=== PATIENT | male | born 1975 | race Hispanic/Latino ===

== ENCOUNTER 2023-08-25 17:30 | Emergency (ER) | payer SELFPAY ==
[2023-08-25 17:31] VITALS: BP 120/79
[2023-08-25 17:37] LABS: Glucose - Point of Care 528 mg/dl (70-99)
[2023-08-25 17:51] VITALS: BP 112/81
[2023-08-25 18:00] VITALS: BP 114/75
[2023-08-25 18:07] LABS: Venous Blood Gas B.E. 2.6 mmol/L (-4 to +4); Venous Blood Gas HCO3 27.2 mmol/L (22-27); Venous Blood Gas O2 Sat % 91.8 %; Venous Blood Gas pCO2 41 mmHg (35-48); Venous Blood Gas pH 7.43 (7.32-7.43); Venous Blood Gas pO2 60 mmHg (30-50)
[2023-08-25 18:10] LABS: % Basophils 0.2 % (0-2); % Eosinophils 6.3 % (0-6); % Immature Granulocytes 0.2 % (0-0.5); % Lymphocytes 42.9 % (20.5-51.1); % Monocytes 6.1 % (1.7-9.3); % Neutrophils 44.3 % (42.2-75.2); Absolute Eosinophils 0.6 10^3/uL (0-0.7); Absolute Lymphocytes 3.8 10^3/uL (1.2-3.4); Absolute Monocytes 0.5 10^3/uL (0.1-0.6); Absolute Neutrophils 3.9 10^3/uL (1.4-6.5); Hematocrit 44.3 % (39.0-52.0); Hemoglobin 15.9 g/dL (13.0-18.0); Mean Corp Hgb Conc. 35.9 g/dL (33.0-37.0); Mean Corpuscular Hgb 30.9 pg (27.0-31.0); Mean Platelet Volume 10.3 fL (7.4-10.4); Nucleated Red Blood Cells % 0 % (-); Platelet Count 223 10^3/uL (130-400); Red Blood Cell Count 5.15 10^6/uL (4.70-6.10); Red Cell Dist. Width 11.3 % (11.5-14.5); White Blood Cell Count 8.9 10^3/uL (4.8-10.8)
[2023-08-25 18:17] LABS: Lactic Acid 1.4 mmol/L (0.7-2.0)
[2023-08-25 18:24] LABS: ALT (SGPT) 26 U/L (0-50); AST (SGOT) 24 U/L (17-59); Albumin 3.9 g/dl (3.5-5.0); Alkaline Phosphatase 104 U/L (38-126); Blood Urea Nitrogen 13 mg/dl (9-20); Calcium 9.3 mg/dl (8.4-10.2); Carbon Dioxide 25 mmol/L (22-30); Chloride 98 mmol/L (98-107); Glucose 497 mg/dl (70-99); Magnesium 1.8 mg/dl (1.6-2.3); Potassium 4.2 mmol/L (3.5-5.1); Sodium 131 mmol/L (135-145); Total Bilirubin 0.4 mg/dl (0.2-1.3); Total Protein 7.5 g/dl (6.3-8.2); eGFR > 60.00
[2023-08-25 18:30] LABS: Troponin I < 0.012 ng/ml
[2023-08-25 18:32] LABS: B-Hydroxybutyrate 0.17 mmol/L (0.02-0.27)
[2023-08-25] MEDS: NOVOLIN R 10 UNITS IV (18:48)
[2023-08-25] MEDS: NSS 1000 IV (18:51)
--- NOTE | 2023-08-25 18:55 | ED.GENMED ---
History of Present Illness
General
Chief Complaint: Blood Sugar Problem
Source: patient
Exam Limitations: none
Time Seen by Provider: 08/25/23 17:50
Nursing documentation reviewed up to this point in time: agreed with
Travel History
Have you had any contact with someone who has COVID-19?: No
Do you have any symptoms of coronavirus? Fever > 100 degrees, chills, cough, shortness of breath, sore throat, loss of taste or smell, muscle aches, or headache?: No
History of Present Illness
History of Present Illness:
Patient presents to ED secondary to intermittent left-sided chest pain over the past 1 week, along with increased blood sugar when checked at home this morning. Patient who migrated from [facility] 2 years ago, states that he was told that he has
'diabetes' in [facility], but was not started on any medications. Patient does not check his blood sugar on a regular basis. There is family history of diabetes. Chest pain described as sharp, intermittent, lasting couple minutes, without any
radiation, without any alleviating or alleviating factors. In addition, patient states that he has had cough with fever for the past 10 days, which now is mostly resolved.
Review of Systems
Review of Systems
Allergies reviewed?: Yes
All Other Systems: ROS reviewed and negative except as documented in HPI and ROS
Constitutional: Reports no symptoms
EENT: Reports no symptoms
Respiratory: Reports no symptoms
Cardiac: Reports chest pain
ABD/GI: Reports no symptoms
: Reports no symptoms
Musculoskeletal: Reports no symptoms
Skin: Reports no symptoms
Neurological: Reports no symptoms
Phy Exam
Physical Exam
Physical Exam:
Physical Exam
General: no apparent distress, not acutely ill. afebrile.
Head: nc/at. eomi
Neck: supple. no meningeal signs.
Heart: s1/s2 regular rate and rhythm, no murmur. equal radial pulses.
Lungs: no acute respiratory distress. clear bilaterally. chest wall nontender to palpation.
Abdomen: normal bowel sounds. not tender.
Neuro: alert and oriented. no focal neurological deficits
Skin: no rash
Psychiatric: well kept. interactive and cooperative
Extremities: no edema. no calf tenderness.
Course
Orders/Labs/Results
Orders:
Orders
08/25/23 17:39
Electrocardiogram (*1) Urgent
Reason for Study: Chest Pain
EKG- Treatment ONCE
08/25/23 17:50
Electrocardiogram (*1) Urgent
Reason for Study: QTc Monitoring
08/25/23 18:00
Acetone [B-Hydroxybutyrate] Urgent
Complete Blood Count/With Diff Urgent
Comprehensive Metabolic Panel Urgent
Glycohemoglobin (HgbA1c) Urgent
Lactic Acid Q4H
Comment: CANCEL 2nd LACTIC ACID IF 1st LACTIC ACID IS LESS THAN 2
Magnesium Urgent
Troponin I Urgent
Venous Blood Gas Urgent
%Oxygen/Room Air: 95
08/25/23 18:42
0.9% Sodium Chloride 1000 ml [Nss] 1,000 ml IV BOLUS
Insulin Human Regular [Novolin R] 10 units IV NOW STA
08/25/23 19:17
Add On- LAB Urgent
Tests Added?: Hemoglobin A1c
08/25/23 20:25
METFORMIN HCl [Glucophage] 500 mg PO NOW STA
08/25/23 20:36
Urinalysis Reflex To Culture Urgent
Date Specimen was Collected: 08/25/23
Time Specimen was Collected: 20:34
Abnormal Lab Results
08/25/23 08/25/23 08/25/23
17:36 18:00 19:58
RDW 11.3 L %
(11.5-14.5)
Absolute Lymphs (auto) 3.8 H 10^3/uL
(1.2-3.4)
Eosinophils % 6.3 H %
(0-6)
VBG pO2 60 H mmHg
(30-50)
VBG HCO3 27.2 H mmol/L
(22-27)
Sodium 131 L mmol/L
(135-145)
Creatinine 0.5 L mg/dL
(0.7-1.3)
Glucose 497 H* mg/dl
(70-99)
Urine Glucose
POC Glucose 528 H* mg/dl 177 H mg/dl
(70-99) (70-99)
08/25/23
20:36
RDW
Absolute Lymphs (auto)
Eosinophils %
VBG pO2
VBG HCO3
Sodium
Creatinine
Glucose
Urine Glucose 3+ A
(Negative)
POC Glucose
08/25/23 18:00
08/25/23 18:00
Vital Signs
Initial and Last Documented VS:
Initial Vital Signs
Temp Pulse Resp BP Pulse Ox
97.9 F 70 20 120/79 96
08/25/23 17:31 08/25/23 17:31 08/25/23 17:31 08/25/23 17:31 08/25/23 17:31
Last Documented Vital Signs
Temp Pulse Resp BP Pulse Ox
97.9 F 67 15 111/74 97
08/25/23 17:31 08/25/23 20:30 08/25/23 20:30 08/25/23 20:00 08/25/23 20:30
MDM/Problems Addressed
MDM/Problems Addressed:
History and exam inconsistent with acute coronary syndrome. Patient's presenting symptoms likely either musculoskeletal or inflammatory in nature from recent upper respiratory infection.
Patient with likely new onset diabetes, without anion gap. Blood sugar improved with IV hydration along with insulin. Patient will be started on metformin 500 mg twice daily, along with referral to [facility] for reevaluation, as
an outpatient.
Information provided to the patient via language line. All questions answered. Patient otherwise is afebrile, hemodynamically stable, and without any distress at time of discharge.
*Critical Care Note
Total Time (30-74mins, 75-104mins- exclusive of procedures): Not Applicable
ED Attending Note
-
Portions of this chart may have been created with voice recognition software.� Occasional wrong word or��sound alike� substitutions may have occurred due to the inherent limitations of voice recognition software.
Discharge Plan
Departure
Patient Disposition: Home (Routine Discharge)
Date of Disposition: 08/25/23
Time of Disposition: 20:44
Patient with high blood pressure during this ER visit?: No
Condition: Good
Discharge Problem:
Diabetes
Instructions: Type 2 Diabetes (DC)
Prescriptions:
New
metformin 500 mg tablet
500 mg PO BID Qty: 60 0RF
Referrals:
[facility] [Outside]
NONE,* [Family Provider] -
Activity Restrictions/Additional Instructions:
As discussed, please follow up with referred medical clinic for further evaluation and treatment.
Interventions
Interventions:
*Risk Screen - Suicide Last Done: 08/25/23 17:31
*General Assessment Last Done: 08/25/23 17:31
*Neglect/Abuse Screening Last Done: 08/25/23 17:31
ED- Fall Risk Assessment Last Done: 08/25/23 18:56
*ED COVID-19 Vaccine History Last Done: 08/25/23 17:43
*Nursing Disposition Last Done: 08/25/23 20:53
ED- Neurological Assessment Last Done: 08/25/23 18:55
Discharge Date and Time
Discharge Date/Time: 08/25/23 20:54
Print Language: THAI
[2023-08-25 19:00] VITALS: BP 113/72
[2023-08-25 20:00] VITALS: BP 111/74
[2023-08-25 20:00] LABS: Glucose - Point of Care 177 mg/dl (70-99)
[2023-08-25] MEDS: GLUCOPHAGE 500 MG PO (20:34)
[2023-08-25 20:43] LABS: Urine Albumin Negative (Neg - Trace); Urine Bilirubin Negative (Negative); Urine Character Clear (Clear); Urine Color Yellow; Urine Glucose 3+ (Negative); Urine Ketone Negative (Negative); Urine Leukocyte Negative (Negative); Urine Nitrite Negative (Negative); Urine Occult Blood Negative (Negative); Urine Urobilinogen Negative (Neg - 1+)
[2023-08-26 14:26] LABS: Glycohemoglobin (HgbA1c) 13.7 % (4.0-5.6)
== END 2023-08-25 20:54 | disposition home or self-care (01) ==
LOC: EMR 17:30
PROVIDERS: EMERGENCY PHYSICIAN Emergency Medicine
DX: R07.89 Other chest pain (principal); E11.9 Type 2 diabetes mellitus without complications
CPT/HCPCS: 99284; 96374; 96361; 80053; 81003; 82010; 82805; 82962; 83036; 83605; 83735; 84484; 85025; 93005

== ENCOUNTER → 2023-10-23 09:14 | Outpatient (REF) | payer OTHER, SELFPAY ==
[2023-10-23 11:01] LABS: Microalbumin, Random Urine 0.7 mg/dl (0.6-1.7); Microalbumin/creatinine Ratio 3.7 mg/g
[2023-10-23 11:13] LABS: ALT (SGPT) 23 U/L (0-50); AST (SGOT) 25 U/L (17-59); Albumin 4.2 g/dl (3.5-5.0); Alkaline Phosphatase 78 U/L (38-126); Blood Urea Nitrogen 13 mg/dl (9-20); Calcium 9.1 mg/dl (8.4-10.2); Carbon Dioxide 25 mmol/L (22-30); Chloride 104 mmol/L (98-107); Glucose 143 mg/dl (70-99); HDL Cholesterol 57 mg/dl; LDL Cholesterol, Calculated 93 mg/dl; Sodium 139 mmol/L (135-145); Total Bilirubin 0.5 mg/dl (0.2-1.3); Total Cholesterol 167 mg/dl (50-199); Total Protein 7.4 g/dl (6.3-8.2); Triglyceride 89 mg/dl (10-149); Very Low Density Lipoprotein 17 mg/dl (0-30); eGFR > 60.00
[2023-10-23 12:04] LABS: Vitamin B12 409 pg/ml (239-931)
[2023-10-23 15:05] LABS: Glycohemoglobin (HgbA1c) 8.9 % (4.0-5.6)
== END ==
LOC: CLINIC 09:14
PROVIDERS: ATTENDING PHYSICIAN Nurse Practitioner Adult Health
DX: E11.65 Type 2 diabetes mellitus with hyperglycemia (principal)
CPT/HCPCS: 80053; 80061; 82043; 82570; 82607; 83036

== ENCOUNTER 2023-12-01 13:28 | Emergency (ER) | payer SELFPAY ==
[2023-12-01 13:37] VITALS: BP 111/70
--- NOTE | 2023-12-01 15:10 | ED.GENMED ---
History of Present Illness
<Iveth Pappas PA-C - Last Filed: 12/01/23 21:02>
General
Chief Complaint: Throat Problem
Source: patient
Exam Limitations: none
Time Seen by Provider: 12/01/23 15:08
Nursing documentation reviewed up to this point in time: agreed with
History of Present Illness
History of Present Illness:
48-year-old male with a past medical history of diabetes on Apruv presenting emergency department today with concerns of a sore on his tongue and inner lip. Patient reports that this started 5 days ago. Patient states that it started as a small
small signs progressed to multiple ulcers on the tip of his tongue along with a lesion on the inside of his lip. Patient states that he is a lot of pain with eating and speaking. Patient denies any pain in his throat, denies any shortness of
breath, any chest pain, any nausea or vomiting. Patient denies any constipation or diarrhea, patient denies any fevers or chills. Patient denies family with similar symptoms. Patient denies history of smoking, tobacco use. Patient denies history
of thrush.
Review of Systems
<Iveth Pappas PA-C - Last Filed: 12/01/23 21:02>
Review of Systems
All Other Systems: ROS reviewed and negative except as documented in HPI and ROS
Phy Exam
<Iveth Pappas PA-C - Last Filed: 12/01/23 21:02>
Physical Exam
Physical Exam:
General: Patient is well appearing and in no acute distress; non-toxic
Skin: Warm and dry, no rashes or lesions
Head: Normocephalic, atraumatic
Eyes: Sclera non-icteric. EOMs intact. PERRLA.
Mouth: Dentition intact, uvula midline, no tonsillar hypertrophy, vesicular lesions with erythematous base noted to the tip of the tongue and that inside the lower lip
Neck: No cervical lymphadenopathy
Ears: TMs intact bilaterally, no lesions in the external ear canals
Cardiac: Regular rate
Pulm: Normal respiratory effort, no wheezes, rales, rhonchi
Neuro: CN II-XII intact, no focal neurologic deficits.
Psychiatric: Appropriate mood and affect.
Course
<Iveth Pappas PA-C - Last Filed: 12/01/23 21:02>
Vital Signs
Initial and Last Documented VS:
Initial Vital Signs
Temp Pulse Resp BP Pulse Ox
98.1 F 61 18 111/70 98
12/01/23 13:37 12/01/23 13:37 12/01/23 13:37 12/01/23 13:37 12/01/23 13:37
Last Documented Vital Signs
Temp Pulse Resp BP Pulse Ox
98.1 F 62 16 112/74 97
12/01/23 13:37 12/01/23 16:40 12/01/23 16:40 12/01/23 16:40 12/01/23 16:40
<Wali Mix MD - Last Filed: 12/01/23 16:24>
Vital Signs
Initial and Last Documented VS:
Initial Vital Signs
Temp Pulse Resp BP Pulse Ox
98.1 F 61 18 111/70 98
12/01/23 13:37 12/01/23 13:37 12/01/23 13:37 12/01/23 13:37 12/01/23 13:37
Last Documented Vital Signs
Temp Pulse Resp BP Pulse Ox
98.1 F 62 16 112/74 97
12/01/23 13:37 12/01/23 16:40 12/01/23 16:40 12/01/23 16:40 12/01/23 16:40
<Iveth Pappas PA-C - Last Filed: 12/01/23 21:02>
MDM/Problems Addressed
Differential Diagnosis Includes:
ddx include HSV, aphthous ulcer, thrush, squamous cell cancer
MDM/Problems Addressed:
Intra-oral ulcers:
48-year-old male with a past medical history of diabetes on Januvia presenting emergency department today with concerns of a sore on his tongue and inner lip. This has been going on for the past 5 days and has been getting more painful. On
physical exam, he has vesicular lesions noted to the tip of the tongue and inner lip consistent with herpes simplex virus. Patient was started on antiviral therapy. I stressed importance of reevaluation to ensure resolution of symptoms with
primary care provider. Patient states that he [facility] with [facility]. Patient stable for discharge.
Chronic conditions affecting care:
diabetes
Acute Exacerbation and/or Progression of Chronic Illness:
n/a
<Iveth Pappas PA-C - Last Filed: 12/01/23 21:02>
*Pulse Oximetry
Patient hypoxic: no
*Critical Care Note
Total Time (30-74mins, 75-104mins- exclusive of procedures): Not Applicable
Data Reviewed
Review of Other/Old Records Reveals: Records (Reviewed previous ER physician documentation from 08/25/2023)
Source: patient and records
<Iveth Pappas PA-C - Last Filed: 12/01/23 21:02>
Patient Management
Escalation/DeEscalation of care consider admission/obs:
Admit not indicated patient stable for discharge
ED Attending Note
<Iveth Pappas PA-C - Last Filed: 12/01/23 21:02>
-
Portions of this chart may have been created with voice recognition software.� Occasional wrong word or��sound alike� substitutions may have occurred due to the inherent limitations of voice recognition software.
<Wali Mix MD - Last Filed: 12/01/23 16:24>
ED Attending Note
Patient seen and examined by attending physician: Yes
I performed the substantive portion of visit, reviewed & personally made and approve the management plan that is documented in note by myself or MIGUEL ANGEL.: Yes
ED Attending Note:
Patient is a 48-year-old male with history of diabetes presenting to the emergency department with sores on his tongue. Patient is for the past 5 days has noticed ulcers at the tip of his tongue. No fevers or chills. No tongue swelling. No
difficulty swallowing. He is having some difficulty with food.. Vitals are notable for being afebrile and exam does show ulcerative lesions at the tip of his tongue with no tongue elevation. No trismus. No muffled voice. No signs of thrush.
History and exam consistent with herpetic lesions. Does not seem consistent with thrush or pharyngitis. Will treat with antivirals and Magic mouthwash.
Discharge Plan
Departure
Patient Disposition: Home (Routine Discharge)
Date of Disposition: 12/01/23
Time of Disposition: 16:25
Patient with high blood pressure during this ER visit?: No
Condition: Good
Discharge Problem:
Primary HSV infection of mouth
Instructions: Cold sores (oral herpes), BLOOD PRESSURE
Prescriptions:
New
acyclovir 400 mg tablet
400 mg PO TID 7 Days Qty: 21 0RF
No Action
metformin 500 mg tablet
500 mg PO BID Qty: 60 0RF
Referrals:
Harriett Glass NP [Family Provider] -
Activity Restrictions/Additional Instructions:
You were seen here today for tongue and lip sores. You likely have a viral infection known as herpes simplex virus. Please start taking a medication called acyclovir. You can take 1 tablet 3 times daily for 7 days. Please follow-up with your
primary care provider to ensure the resolution of your symptoms.
Please return to the emergency department should you experience chest pain, shortness of breath, trouble breathing, lip swelling, fevers or chills, or any other signs or symptoms concerning to you.
Interventions
Interventions:
ED- Fall Risk Assessment Last Done: 12/01/23 16:00
*Nursing Disposition Last Done: 12/01/23 16:49
ED-EENT Assessment Last Done: 12/01/23 16:00
ED- Pulmonary Assessment Last Done: 12/01/23 16:00
Discharge Date and Time
Discharge Date/Time: 12/01/23 16:49
Print Language: MONTSERRATIAN
[2023-12-01 16:40] VITALS: BP 112/74
== END 2023-12-01 16:49 | disposition home or self-care (01) ==
LOC: EMR 13:28
PROVIDERS: EMERGENCY PHYSICIAN Student in an Organized Health Care Education/Training Program; FAMILY PHYSICIAN Nurse Practitioner Adult Health
DX: B00.2 Herpesviral gingivostomatitis and pharyngotonsillitis (principal); K13.79 Other lesions of oral mucosa; E11.9 Type 2 diabetes mellitus without complications; Z79.84 Long term (current) use of oral hypoglycemic drugs
CPT/HCPCS: 99283

== ENCOUNTER → 2024-01-03 08:47 | Outpatient (REF) | payer OTHER, SELFPAY ==
[2024-01-03 10:33] LABS: Glycohemoglobin (HgbA1c) 7.6 % (4.0-5.6)
[2024-01-03 10:53] LABS: ALT (SGPT) 31 U/L (0-50); AST (SGOT) 27 U/L (17-59); Albumin 4.1 g/dl (3.5-5.0); Alkaline Phosphatase 78 U/L (38-126); Blood Urea Nitrogen 12 mg/dl (9-20); Calcium 9.2 mg/dl (8.4-10.2); Carbon Dioxide 24 mmol/L (22-30); Chloride 101 mmol/L (98-107); Glucose 188 mg/dl (70-99); Potassium 4.2 mmol/L (3.5-5.1); Sodium 140 mmol/L (135-145); Total Bilirubin 0.5 mg/dl (0.2-1.3); Total Protein 7.4 g/dl (6.3-8.2); eGFR > 60.00
== END ==
LOC: REG 08:47
PROVIDERS: ATTENDING PHYSICIAN Nurse Practitioner Adult Health
DX: E11.65 Type 2 diabetes mellitus with hyperglycemia (principal)
CPT/HCPCS: 36415; 80053; 83036

== ENCOUNTER → 2024-05-03 16:09 | Outpatient (REF) | payer OTHER, SELFPAY ==
[2024-05-03 16:41] LABS: Hemoglobin 15.8 g/dL (13.0-18.0); Mean Corp Hgb Conc. 35.9 g/dL (33.0-37.0); Mean Corpuscular Hgb 30.8 pg (27.0-31.0); Mean Corpuscular Volume 85.8 fL (80.0-94.0); Mean Platelet Volume 10.3 fL (7.4-10.4); Platelet Count 227 10^3/uL (130-400); Red Blood Cell Count 5.13 10^6/uL (4.70-6.10); Red Cell Dist. Width 11.7 % (11.5-14.5); White Blood Cell Count 11.3 10^3/uL (4.8-10.8)
[2024-05-03 17:00] LABS: ALT (SGPT) 30 U/L (0-50); AST (SGOT) 27 U/L (17-59); Albumin 4.5 g/dl (3.5-5.0); Alkaline Phosphatase 89 U/L (38-126); Blood Urea Nitrogen 13 mg/dl (9-20); Calcium 9.1 mg/dl (8.4-10.2); Carbon Dioxide 28 mmol/L (22-30); Chloride 98 mmol/L (98-107); Glucose 244 mg/dl (70-99); Potassium 4.5 mmol/L (3.5-5.1); Sodium 135 mmol/L (135-145); Total Bilirubin 0.3 mg/dl (0.2-1.3); Total Protein 8.2 g/dl (6.3-8.2); eGFR > 60.00
[2024-05-04 08:32] LABS: Glycohemoglobin (HgbA1c) 10.1 % (4.0-5.6)
== END ==
LOC: CLINIC 16:09
PROVIDERS: ATTENDING PHYSICIAN Nurse Practitioner Adult Health
DX: E11.65 Type 2 diabetes mellitus with hyperglycemia (principal)
CPT/HCPCS: 36415; 80053; 83036; 85027

== ENCOUNTER → 2024-07-07 06:31 | Outpatient (REF) | payer OTHER, SELFPAY ==
[2024-07-07 07:26] LABS: ALT (SGPT) 31 U/L (0-50); AST (SGOT) 28 U/L (17-59); Albumin 4.5 g/dl (3.5-5.0); Alkaline Phosphatase 84 U/L (38-126); Blood Urea Nitrogen 15 mg/dl (9-20); Calcium 9.2 mg/dl (8.4-10.2); Carbon Dioxide 30 mmol/L (22-30); Chloride 103 mmol/L (98-107); Glucose 175 mg/dl (70-99); Potassium 4.3 mmol/L (3.5-5.1); Sodium 142 mmol/L (135-145); Total Bilirubin 0.7 mg/dl (0.2-1.3); Total Protein 8.1 g/dl (6.3-8.2); eGFR > 60.00
[2024-07-07 07:53] LABS: Microalbumin, Random Urine 1.2 mg/dl (0.6-1.7); Microalbumin/creatinine Ratio 6.1 mg/g
== END ==
LOC: CLINIC 06:31
PROVIDERS: ATTENDING PHYSICIAN Nurse Practitioner Adult Health
DX: E11.65 Type 2 diabetes mellitus with hyperglycemia (principal)
CPT/HCPCS: 36415; 80053; 82043; 82570; 83036

== ENCOUNTER → 2024-10-19 06:30 | Outpatient (REF) | payer OTHER, SELFPAY ==
[2024-10-19 07:50] LABS: ALT (SGPT) 26 U/L (0-50); AST (SGOT) 27 U/L (17-59); Albumin 4.2 g/dl (3.5-5.0); Alkaline Phosphatase 59 U/L (38-126); Blood Urea Nitrogen 13 mg/dl (9-20); Calcium 8.9 mg/dl (8.4-10.2); Carbon Dioxide 25 mmol/L (22-30); Chloride 107 mmol/L (98-107); Glucose 121 mg/dl (70-99); Potassium 4.2 mmol/L (3.5-5.1); Sodium 140 mmol/L (135-145); Total Protein 7.5 g/dl (6.3-8.2); eGFR > 60.00
[2024-10-19 10:34] LABS: Glycohemoglobin (HgbA1c) 5.8 % (4.0-5.6)
== END ==
LOC: CLINIC 06:30
PROVIDERS: ATTENDING PHYSICIAN Nurse Practitioner Adult Health
DX: E11.65 Type 2 diabetes mellitus with hyperglycemia (principal)
CPT/HCPCS: 36415; 80053; 83036

== ENCOUNTER → 2025-02-14 06:39 | Outpatient (REF) | payer OTHER, SELFPAY ==
[2025-02-14 08:37] LABS: Microalb - Urine Creatinine 119.800 mg/dl
[2025-02-14 08:41] LABS: Microalbumin, Random Urine 0.6 mg/dl (0.6-1.7)
[2025-02-14 08:49] LABS: ALT (SGPT) 26 U/L (0-50); AST (SGOT) 27 U/L (17-59); Albumin 4.1 g/dl (3.5-5.0); Alkaline Phosphatase 61 U/L (38-126); Blood Urea Nitrogen 14 mg/dl (9-20); Calcium 9.3 mg/dl (8.4-10.2); Carbon Dioxide 29 mmol/L (22-30); Chloride 103 mmol/L (98-107); Glucose 129 mg/dl (70-99); HDL Cholesterol 55 mg/dl; LDL Cholesterol, Calculated 91 mg/dl; Potassium 4.5 mmol/L (3.5-5.1); Sodium 137 mmol/L (135-145); Total Protein 7.9 g/dl (6.3-8.2); Very Low Density Lipoprotein 25 mg/dl (0-30); eGFR > 60.00
[2025-02-14 10:13] LABS: Glycohemoglobin (HgbA1c) 6.3 % (4.0-5.9)
== END ==
LOC: CLINIC 06:39
PROVIDERS: ATTENDING PHYSICIAN Nurse Practitioner Adult Health
DX: E11.65 Type 2 diabetes mellitus with hyperglycemia (principal)
CPT/HCPCS: 36415; 80053; 80061; 82043; 82570; 83036